=== PATIENT | female | born 1975 | race Hispanic/Latino ===

== ENCOUNTER 2020-08-26 21:42 | Observation (INO) | payer BC, MEDICAID ==
[~2020-08-26] VITALS: Ht 162.6 cm; Wt 67.1 kg
[2020-08-26 22:12] LABS: APPEARANCE,URINE Clear (CLEAR); BILIRUBIN,URINE Negative (NEGATIVE); COLOR,URINE Yellow (YELLOW); GLUCOSE, URINE (UA) Negative (NEGATIVE); KETONES,URINE >=80 mg/dL (NEGATIVE); LEUKOCYTE ESTERASE ,URINE Negative (NEGATIVE); NITRATE,URINE Negative (NEGATIVE); OCCULT BLOOD,URINE Negative (NEGATIVE); PROTEIN,URINE Negative (NEGATIVE)
[2020-08-26 22:15] LABS: HCG,QUAL RESULT NEGATIVE (NEGATIVE)
[2020-08-26] MEDS ORDERED: SODIUM CHLORIDE 0.9% 1000ML 1,000 ML IV ONE (22:17)
[2020-08-26 22:18] LABS: BACTERIA,URINE Rare /HPF (None Seen); MUCUS,URINE Rare LPF (None Seen); RBC,URINE 0-1 /HPF (0-1); SQUAMOUS EPITHELIAL CELL,UR Moderate /HPF (0-2); WBC,URINE 0-1 /HPF (0-1)
[2020-08-26 22:19] LABS: AMPHET/METH SCREEN,URINE NEGATIVE (NEGATIVE); BARBITURATE SCREEN, URINE NEGATIVE (NEGATIVE); BENZODIAZEPINES SCREEN,URINE NEGATIVE (NEGATIVE); CANNABINOID SCREEN,URINE POSITIVE (NEGATIVE); COCAINE SCREEN,URINE NEGATIVE (NEGATIVE); OPIATE SCREEN,URINE POSITIVE (NEGATIVE); PHENCYCLIDINE SCREEN,URINE NEGATIVE (NEGATIVE)
[2020-08-26 22:31] LABS: BASOPHILS % (AUTO) 0.2 % (0.0-5.0); EOSINOPHILS % (AUTO) 0.2 % (0.0-8.0); HEMATOCRIT 37.4 % (36-48); LYMPHOCYTES % (AUTO) 8.3 % (21.0-51.0); MEAN CORPUSCULAR HGB CONC 32.6 g/dL (32.0-36.0); MEAN CORPUSCULAR VOLUME 79.6 fL (79-99); MONOCYTES % (AUTO) 2.7 % (3.0-13.0); NEUTROPHILS % (AUTO) 88.1 % (40.0-77.0); PLATELET COUNT (AUTO) 315 K/uL (130-400); RED CELL DISTRIBUTION WIDTH 17.2 % (11.0-15.5); WHITE BLOOD COUNT (AUTO) 17.3 K/uL (4.8-10.8)
[2020-08-26] MEDS ORDERED: DiphenhydrAMINE HCL 50 MG/ML VIAL ONE (22:42)
[2020-08-26] MEDS ORDERED: PROCHLORPERAZINE EDISYLATE 10 MG/2 ML VIAL ONE (22:42)
[2020-08-26] MEDS ORDERED: LORAZEPAM 2 MG/ML 1 ML VIAL ONE (22:43)
[2020-08-26] MEDS ORDERED: KETOROLAC TROMETHAMINE 15MG/ML ONE (22:44)
[2020-08-27] VITALS (7 sets, daily range): BP systolic 104–129; BP diastolic 55–102
[2020-08-27] MEDS ORDERED: CEFAZOLIN SODIUM 1 GM VIAL IVP SCH ×2 (02:45→10:45)
[2020-08-27] MEDS ORDERED: CEFAZOLIN SODIUM 1 GM VIAL ONE (03:49)
[2020-08-27] MEDS ORDERED: BUSP5TAB3 PO (04:28)
[2020-08-27] MEDS: KETOROLAC TROMETHAMINE 15MG/ML IV PRN ×3 (05:03→19:34)
[2020-08-27] MEDS: DEXTROSE 5%-LACTATED RINGERS 1,000 ML IV SCH ×2 (07:35→15:42)
[2020-08-27] MEDS: ONDANSETRON HCL 4 MG/2 ML VIAL IVP PRN (08:43)
[2020-08-27] MEDS ORDERED: ACETAMINOPHEN-CODEINE 300/30MG TAB PO PRN (09:15)
[2020-08-27] MEDS: CEFAZOLIN SODIUM 1 GM VIAL IVP SCH ×2 (12:57→20:11)
[2020-08-27] MEDS ORDERED: TRAMADOL HCL 50 MG TABLET PO PRN (15:30)
[2020-08-27] MEDS ORDERED: NON-FORMULARY MEDICATION 1 EACH (Buspirone HCl 10 MG) PO PRN (19:45)
[2020-08-27] MEDS ORDERED: BUSP10TA3 PO (19:47)
[2020-08-27] MEDS: BUSPIRONE HCL 5 MG TABLET PO PRN (21:09)
[2020-08-28] MEDS: ONDANSETRON HCL 4 MG/2 ML VIAL IVP PRN ×2 (00:27→08:37)
[2020-08-28] MEDS: DEXTROSE 5%-LACTATED RINGERS 1,000 ML IV SCH ×3 (00:37→16:58)
[2020-08-28 03:14] VITALS: BP 108/57
[2020-08-28] MEDS: CEFAZOLIN SODIUM 1 GM VIAL IVP SCH ×2 (04:25→12:29)
[2020-08-28] MEDS: KETOROLAC TROMETHAMINE 15MG/ML IV PRN ×2 (04:40→10:48)
[2020-08-28 06:51] LABS: BASOPHILS % (AUTO) 0.2 % (0.0-5.0); EOSINOPHILS % (AUTO) 1.2 % (0.0-8.0); HEMATOCRIT 31.3 % (36-48); LYMPHOCYTES % (AUTO) 12.9 % (21.0-51.0); MEAN CORPUSCULAR HEMOGLOBIN 26.2 pg (27.0-33.0); MEAN CORPUSCULAR HGB CONC 32.3 g/dL (32.0-36.0); MEAN CORPUSCULAR VOLUME 81.3 fL (79-99); MONOCYTES % (AUTO) 4.9 % (3.0-13.0); NEUTROPHILS % (AUTO) 80.4 % (40.0-77.0); PLATELET COUNT (AUTO) 270 K/uL (130-400); RED BLOOD CELL COUNT(AUTO) 3.85 MIL/uL (4.00-5.50); RED CELL DISTRIBUTION WIDTH 17.2 % (11.0-15.5); WHITE BLOOD COUNT (AUTO) 10.4 K/uL (4.8-10.8)
[2020-08-28 07:39] VITALS: BP 136/65
[2020-08-28] MEDS: BUSPIRONE HCL 5 MG TABLET PO PRN (11:01)
[2020-08-28 11:39] VITALS: BP 117/69
[2020-08-28] MEDS ORDERED: IBUPROFEN 800 MG TAB PO PRN (13:30)
== END 2020-08-28 19:15 | disposition home or self-care (01) ==
LOC: EDH 21:42 → EDHIP 08-27 01:13 → WSH 08-27 02:31
PROVIDERS: ADMIT Obstetrics & Gynecology; ATTEND Obstetrics & Gynecology
DX: G89.18 Other acute postprocedural pain (principal); R10.2 Pelvic and perineal pain; E27.8 Other specified disorders of adrenal gland; F41.9 Anxiety disorder, unspecified; Z98.51 Tubal ligation status; Z79.899 Other long term (current) drug therapy; Z88.8 Allergy status to other drugs, medicaments and biological substances; Z88.5 Allergy status to narcotic agent
CPT/HCPCS: 36415 ×2; 74176; 76856; 80305; 81001; 81025; 84484; 84702; 85025 ×2; 96361 ×2; 96374; 96375; 96376 ×2; 99285; G0378 ×39; J0690 ×5; J0780; J1200; J1885 ×6; J2060; J2405 ×3; J7030